=== PATIENT | female | born 1955 | race Caucasian/White ===

== ENCOUNTER 2020-06-21 08:54 | Outpatient (REF) | payer MEDICARE, SELFPAY ==
--- NOTE | 2020-06-21 | MM_ITS ---
EXAMINATION: MM SCREENING DIGITAL BREAST TOMOSYNTHESIS, BILATERAL CLINICAL INFORMATION: Screening. Asymptomatic. The lifetime risk of breast cancer based on the Tyrer-Cuzick Model is 6.2%. COMPARISON: Mammography: June 05, 2019 and studies dating back to November 16, 2011 TECHNIQUE: Digital breast tomosynthesis is performed in both the craniocaudal and mediolateral oblique views along with computer-aided detection (CAD). Synthesized 2D images are generated from the tomosynthesis. FINDINGS: There are scattered areas of fibroglandular density (ACR BI-RADS breast composition Category b). There are no significant masses, abnormal calcifications, or other abnormalities. MM/MM tomosynthesis screening BI IMPRESSION: There are no significant changes from prior study. ASSESSMENT: BI-RADS 1: Negative RECOMMENDATION: Routine annual mammography screening. This patient's information was entered into a reminder system with a target due date for their next mammogram.
== END 2020-06-21 08:55 | disposition home or self-care (01) ==
LOC: HO.MAMMO 08:54
PROVIDERS: PCP Family Medicine; Visit Provider Family Medicine
DX: Z12.31 Encounter for screening mammogram for malignant neoplasm of breast (principal)
CPT/HCPCS: 77063; 77067

== ENCOUNTER 2020-12-02 12:16 | Outpatient (REF) | payer MEDICARE, SELFPAY ==
--- NOTE | 2020-12-02 15:19 | MHC.AU.AHA ---
Adult Audiological Evaluation Date of Visit: 12/02/20 Reason for Appointment: Audiological evaluation to monitor the status of Ms. Carreno's hearing loss. She reports that her hearing seems to be gradually decreasing. She has a longstanding history of mixed hearing loss related to otosclerosis. Ms. Carreno uses hearing aids binaurally. She denies any significant changes to her medical history. Previous Hearing Test Results: [facility] [place], 12/26/2018- Moderate mixed hearing loss in the right ear. Moderate to severe mixed hearing loss in the left ear. Ear History: Previous Ear Surgery: PE tubes, left stapedectomy 1998 [place] Tinnitus/Ringing/Noises in Ears: Left Ear Medical History: Medical History: Hysterectomy Hearing Instrument History- Right Ear: Design Draftsman: Phonak Model: Talent Worldo V90-312 canal Serial Number: [id number] Battery Size: 312 Repair Warranty: 01/24/2019 Loss and Damage Warranty: 01/24/2019 Dispensed By: [facility] Date of Fittin01/13/2016 Hearing Instrument History- Left Ear: Design Draftsman: Phonak Model: Talent Worldo V90-312 canal Serial Number: [id number] Battery Size: 312 Warranty: 01/24/2019 Loss and Damage Warranty: 01/24/2019 Dispensed By: [facility] Date of Fittin01/13/2016 Otoscopy: Right Ear: Unremarkable Left Ear: Unremarkable Tympanometry: Tympanometry performed due to: History of mixed hearing loss Right Ear: Normal Middle Ear System (Type A) Left Ear: Normal Middle Ear System (Type A) Hearing Evaluation: Transducer(s) Used: Insert Earphones, Bone Conduction Method: Conventional Audiometry Stimuli Used: Pure Tones Right Ear: Description of Hearing: Moderate conductive hearing loss 250-500 Hz and a moderate to moderately severe sensorineural hearing loss from 2303-4006 Hz. Left Ear: Description of Hearing: Moderately severe conductive hearing loss 250-500 Hz and a moderate to severe mixed hearing loss from 8475-1716 Hz. Speech Recognition Threshold (SRT): Method Used: Monitored Live Voice Stimuli Used: Spondee Words Right Ear: 35 dBHL Left Ear: 45 dBHL Word Discrimination: Method: Recorded Lists Word Lists Used: NU-6 Right Ear: 100% at 75 dBHL Left Ear: 88% at 85 dBHL Comparison: Compared to most recent evaluation: Minor 5-10 dBHL threshold shifts bilaterally. Recommendations: Audiological re-evaluation in one year. Ms. Carreno noted that she may be interested in pursuing updated hearing aids. Discussed briefly and recommended that she return for a hearing aid evaluation if she would like to pursue hearing aids through our clinic. Diagnosis: Primary Diagnosis: H90.6 Mixed Hearing Loss, Bilateral Services Performed: Comprehensive Audiological Evaluation (CPT 92184) Tympanometry (CPT 78474) Signature: Provider: Ijeoma Hardin, CCC-A
== END 2020-12-02 12:17 | disposition home or self-care (01) ==
LOC: HO.SH 12:16
PROVIDERS: Visit Provider Family Medicine
DX: H90.6 Mixed conductive and sensorineural hearing loss, bilateral (principal)
CPT/HCPCS: 92557; 92567